=== PATIENT | female | born 1990 | race Caucasian/White ===

== ENCOUNTER 2017-03-05 09:32 | Emergency (ER) | payer BC ==
--- NOTE | ~2017-03-05 | US67 ---
[facility] A Service of [facility] RADIOLOGY TEXT RESULTS PATIENT: SUSANA PHILIP LOCATION: [facility] : [birth year] UNIT #: [id number] AGE: [address]: Kris Finley MD SEX: F ORDER DR: [id number] [facility] [address] [place], [place] [address] [id number] E MR#: [id number] Acc #: [id number] NAME: SUSANA PHILIP : 1990 SEX: F STUDY DATE/TIME: 03/05/2017 11:17 UNIT: [facility] ROOM: STUDY DESCRIPTION: Gallbladder Attending Physician: Kris Finley M.D. Ordering Physician: Kris Finley M.D. Primary Care Physician: Primary Care Physician No MEDICAL IMAGING REPORT This report is preliminary unless electronic signature is present EXAM Gallbladder ultrasound COMPARISON None. FINDINGS 26-year-old female with right upper quadrant abdominal pain, nausea, emesis for 1 week. FINDINGS Visualized portions of the pancreas are within normal limits. Hepatic contour is smooth. Portal architecture is maintained. Normal caliber of the common bile duct at 4 mm. Gallbladder wall thickness is normal. The gallbladder is full of shadowing calculi. There is no pericholecystic fluid. Right kidney is normal in length and cortical thickness. No right hydronephrosis. No focal lesions are seen within the liver or the right kidney. Main portal vein is patent with expected waveform and flow direction. There is normal hepatic length of 14.5 cm. Hepatic veins and the inferior vena cava patent. IMPRESSION 1. The gallbladder is full of calculi. There is no evidence of acute cholecystitis. No biliary dilatation. 2. Normal sonographic evaluation of the liver and right kidney. Dictated by... Toan Chand M.D. THIS IS AN ELECTRONICALLY VERIFIED REPORT Toan Chand M.D. at 03/10/2017 7:12 PM BLM/pcl [facility] A Service of [facility] RADIOLOGY TEXT RESULTS PATIENT: SUSANA PHILIP [id number] [birth year] UNIT #: [id number] AGE: [address]: Kris Finley MD SEX: F ORDER DR: TD: 03/05/2017 13:41 JOB #: [id number] MEDICAL IMAGING REPORT Page 1 of 1 COPY
--- NOTE | ~2017-03-05 | US77 ---
[facility] A Service of [facility] RADIOLOGY TEXT RESULTS PATIENT: SUSANA PHILIP LOCATION: [facility] : [birth year] UNIT #: [id number] AGE: [address]: Kris Finley MD SEX: F ORDER DR: [id number] [id number] [place] [facility]. [place], [place] [address] [id number] E MR#: [id number] Acc #: [id number] NAME: SUSANA PHILIP : 1990 SEX: F STUDY DATE/TIME: 03/05/2017 11:07 UNIT: [facility] ROOM: STUDY DESCRIPTION: US Kidney Bilateral Complete Attending Physician: Kris Finley M.D. Ordering Physician: Kris Finley M.D. Primary Care Physician: Primary Care Physician No MEDICAL IMAGING REPORT This report is preliminary unless electronic signature is present EXAM Complete renal ultrasound COMPARISON None. INDICATIONS 26-year-old female with right upper and lower quadrant pain radiating into the pelvis for 1 week. FINDINGS Right kidney measures 11.6 cm in length of normal cortical thickness and expected internal color flow. Urinary bladder is unremarkable. Evaluation of the left kidney is limited by poor acoustic window. Left kidney measures 11.3 cm in length with normal cortical thickness. There is color flow within the left kidney. No evidence of hydronephrosis of either kidney. No echogenic, shadowing renal calculi. Left kidney is better evaluated on cine imaging and no evidence of suspicious left renal lesion is seen. IMPRESSION Renal ultrasound is within normal limits. Normal appearance of the urinary bladder. Dictated by... Toan Chand M.D. THIS IS AN ELECTRONICALLY VERIFIED REPORT Toan Chand M.D. at 03/09/2017 12:32 PM BLM/pcl [facility] A Service of [facility] RADIOLOGY TEXT RESULTS PATIENT: SUSANA PHILIP LOCATION: [facility] : [birth year] UNIT #: [id number] AGE: [address]: Kris Finley MD SEX: F ORDER DR: TD: 03/05/2017 13:37 JOB #: [id number] MEDICAL IMAGING REPORT Page 1 of 1 COPY
--- NOTE | ~2017-03-05 | US61 ---
[facility] A Service of [facility] RADIOLOGY TEXT RESULTS PATIENT: SUSANA PHILIP LOCATION: [facility] : [birth year] UNIT #: [id number] AGE: [address]: Kris Finley MD SEX: F ORDER DR: [id number] [facility] [address] [place], [place] [address] [id number] E MR#: [id number] Acc #: [id number] NAME: SUSANA PHILIP : 1990 SEX: F STUDY DATE/TIME: 03/05/2017 11:26 UNIT: [facility] ROOM: STUDY DESCRIPTION: US /Mat <14Wk / Attending Physician: Kris Finley M.D. Ordering Physician: Kris Finley M.D. Primary Care Physician: Primary Care Physician No MEDICAL IMAGING REPORT This report is preliminary unless electronic signature is present EXAM /maternal ultrasound less than 14 weeks. INDICATIONS 26-year-old female with right lower quadrant pain for 1 week. No bleeding. Beta quantitative HCG is 66,730 gaye international units per mL. FINDINGS Within the uterus, there is a gestational sac as well as a yolk sac and a pole. heart rate ranges between 135-139 beats per minute. [place]-rump length is measuring between 6 weeks and 5 days to 7 weeks, 0 days gestation. There is normal abhinav-gestational reaction. No evidence of abhinav-gestational hemorrhage. Uterus measures 5.8 cm x 4.3 cm x 8.7 cm. Left ovary measures 2.9 cm x 2.2 cm x 2.1 cm with peripheral internal color flow. There are multiple cysts within the left ovary, which also demonstrates internal Doppler flow. Largest left ovarian cyst measures up to 1.3 cm x 1.3 cm x 1.3 cm and does not have internal color flow. Right ovary measures approximately 2 cm x 1.5 cm x 2.2 cm and has normal internal follicles. There is color-flow and Doppler flow within the right ovary. Small amount of free fluid within the pelvis. IMPRESSION 1. Single living intrauterine with gestational age by crown-rump length ranging between 6 weeks and 5 days to 7 weeks, 0 days. There is no evidence of abhinav-gestational hemorrhage. Normal heart rate. 2. Small amount free fluid the pelvis, possibly physiologic. 3. No evidence of ovarian torsion. There are normal follicles within the right ovary and there are cysts in the left ovary, 1 of which likely represents a corpus luteum cyst measuring up to 1.3 cm. Cervix appears closed. [facility] A Service of [facility] RADIOLOGY TEXT RESULTS PATIENT: SUSANA PHILIP LOCATION: [facility] : 86 UNIT #: [id number] AGE: [address]: Kris Finley MD SEX: F ORDER DR: Dictated by... Toan Chand M.D. THIS IS AN ELECTRONICALLY VERIFIED REPORT Toan Chand M.D. at 03/10/2017 7:25 PM BLM/pcl TD: 03/05/2017 13:43 JOB #: [id number] MEDICAL IMAGING REPORT Page 1 of 1 COPY
[2017-03-05 10:20] LABS: URINE SOURCE CLEAN CATCH
[2017-03-05 10:22] LABS: BASOPHIL% 0.5 % (0-2.5); EOSINOPHIL# 0.1 X10e3 (0-0.7); EOSINOPHIL% 0.9 % (0.0-7.0); HEMATOCRIT 39.7 % (35.0-45.0); HEMOGLOBIN 13.3 gm/dL (12.0-16.0); LYMPHOCYTE# 1.5 X10e3 (1.0-3.5); LYMPHOCYTE% 18.6 % (17.0-45.0); MEAN CELL VOLUME 91.9 FL (83-96); MEAN CORPUSCULAR HEMOGLOBIN 30.8 PG (28-34); MEAN CORPUSCULAR HGB CONC 33.5 g/dL (30-36); MEAN PLATELET VOLUME 8.9 FL (6.5-11.5); MONOCYTE# 0.5 X10e3 (0-1.0); MONOCYTE% 5.9 % (3.0-12.0); NEUTROPHIL# 5.9 X10e3 (1.5-7.1); NEUTROPHIL% 74.1 % (40-75); PLATELET COUNT 268 X10e3 (140-420); RED BLOOD COUNT 4.32 X10e (3.90-5.30); WHITE BLOOD COUNT 7.9 X10e3 (4.0-10.5)
[2017-03-05 10:24] LABS: DIFF IND NO
[2017-03-05 10:26] LABS: URINE APPEARANCE CLOUDY; URINE BLOOD NEG (NEG); URINE COLOR DK YELLOW; URINE GLUCOSE NEG (NEG); URINE KETONE 3+ (NEG); URINE LEUKOCYTE ESTERASE 2+ (NEG); URINE NITRATE NEG (NEG); URINE PH 5.5 (5-8); URINE PROTEIN NEG (NEG); URINE SPECIFIC GRAVITY 1.023 (1.003-1.035)
[2017-03-05 10:28] LABS: CULTURE INDICATED? YES; URINE SQUAMOUS EPITHELIAL CELL MOD /[HPF]
[2017-03-05 10:47] LABS: URINE BILIRUBIN POS (NEG)
[2017-03-05 10:49] LABS: URINE MUCUS PRESENT
[2017-03-05 10:51] LABS: URINE BACTERIA AUWI 1+ (NEGATIVE)
[2017-03-05 10:52] LABS: URBCS1 AUWI 0-2 /[HPF] (0-2)
[2017-03-05 11:17] LABS: ALBUMIN SERUM 4.3 g/dL (3.5-5.0); BILIRUBIN, DIRECT 0.9 mg/dL (0.0-0.2); BILIRUBIN,INDIRECT 0.9 mg/dL (0.0-0.9); BILIRUBIN,TOTAL 1.8 mg/dL (0.2-2.0); BUN/CREATININE RATIO 8.57; CALCIUM SERUM 8.9 mg/dL (8.4-10.2); CREATININE SERUM 0.7 mg/dL (0.6-1.4); GLOM FILT RATE Estimated 117.9 mL/min (>60); POTASSIUM 3.5 mmol/L (3.5-5.1)
== END 2017-03-05 14:22 | disposition home or self-care (01) ==
LOC: CED 09:32
PROVIDERS: Emergency Medicine
DX: O26.891 Other specified pregnancy related conditions, first trimester (principal); K80.70 Calculus of gallbladder and bile duct without cholecystitis without obstruction; J45.909 Unspecified asthma, uncomplicated; F17.200 Nicotine dependence, unspecified, uncomplicated
CPT/HCPCS: 36415; 76705; 76770; 76801; 80048; 80076; 81003; 82150; 83690; 84702; 85025; 87086; 96361; 96374; 99284; J2765